=== PATIENT | male | born 1935 | race Caucasian/White ===

== ENCOUNTER → 2021-06-02 | Outpatient (CLI) | payer OTHER ==
[~2021-06-02] MED LIST: AMBIEN 10 MG TA10 MG PO; ASPIRIN EC81 M1 PO; BENICAR PO; FLOMAX PO; LEXAPRO 10 MG T10 MG PO; LEXAPRO20 MG PO; LIPITOR10 MG PO
== END ==
LOC: SJCVC 13:13
PROVIDERS: ATTEND Internal Medicine Cardiovascular Disease
DX: I25.10 Atherosclerotic heart disease of native coronary artery without angina pectoris (principal); I10 Essential (primary) hypertension; E78.00 Pure hypercholesterolemia, unspecified; R35.0 Frequency of micturition; R53.83 Other fatigue; R06.00 Dyspnea, unspecified; K21.9 Gastro-esophageal reflux disease without esophagitis; F32.9 Major depressive disorder, single episode, unspecified; Z88.8 Allergy status to other drugs, medicaments and biological substances; Z79.899 Other long term (current) drug therapy; Z87.891 Personal history of nicotine dependence

== ENCOUNTER → 2021-07-01 | Outpatient (CLI) | payer OTHER | LOC: SJCVCIMAG 07:30 | PROVIDERS: ATTEND Internal Medicine Cardiovascular Disease | DX: I07.1 Rheumatic tricuspid insufficiency (principal); I44.0 Atrioventricular block, first degree; I49.3 Ventricular premature depolarization; I10 Essential (primary) hypertension; I25.10 Atherosclerotic heart disease of native coronary artery without angina pectoris; R53.83 Other fatigue; R06.00 Dyspnea, unspecified ==